=== PATIENT | female | born 1980 | race Caucasian/White ===

== ENCOUNTER 2019-12-26 14:34 | Inpatient (IN) | payer MEDICARE, MEDICAID ==
[~2019-12-26] VITALS: Ht 160 cm; Wt 90.0 kg
[2019-12-26] MEDS ORDERED: DexAMETHasone SOD PHOS 10MG/1ML VIAL INJ IV ONE (22:00)
[2019-12-26] MEDS ORDERED: DOXYCYCLINE 100 MG TAB/CAP PO ONE (22:00)
[2019-12-26] MEDS ORDERED: SODIUM CHLORIDE 0.9% 1,000 ML IV ONE (22:00)
[2019-12-26] MEDS ORDERED: DOXYCYCLINE 100MG/250ML 250 ML IV ONE (22:15)
[2019-12-26] MEDS ORDERED: LEVO25TA6 PO (22:19)
[2019-12-26] MEDS ORDERED: CLOZ50TA4 PO (22:19)
[2019-12-26] MEDS ORDERED: LITH300T5 PO (22:19)
[2019-12-26 22:26] LABS: Basophils # (auto) 0 10 ^3/uL (0-0.2); Basophils % (auto) 0.2 % (0.0-2.0); Eosinophils # (auto) 0 10 ^3/uL (0-0.8); Hematocrit 40.2 % (36.0-46.0); Hemoglobin 13.4 g/dL (12.2-16.2); Lymphocytes # (auto) 1.3 10 ^3/uL (0.4-5.4); Lymphocytes % (auto) 9.1 % (10.0-50.0); Mean Corpuscular Hemoglobin 31.6 pg (28.0-32.0); Mean Corpuscular Hgb Conc. 33.4 g/dL (32.0-36.0); Mean Corpuscular Volume 94.8 fL (80.0-100.0); Monocytes # (auto) 1.7 10 ^3/uL (0-1.3); Monocytes % (auto) 11.6 % (0.0-12.0); Neutrophils # (auto) 11.5 10 ^3/uL (1.6-8.6); Neutrophils % (auto) 79.1 % (37.0-80.0); Platelet Count (auto) 236 10^3/uL (140-450); Red Blood Cells 4.24 10^6/uL (4.0-5.20); White Blood Cell 14.5 10^3/uL (4.4-10.8)
[2019-12-26] MEDS ORDERED: LACT10SO70 PO (22:26)
[2019-12-26] MEDS ORDERED: LACT10SO3 PO (22:26)
[2019-12-26] MEDS ORDERED: LAMO100T44 PO (22:26)
[2019-12-26] MEDS ORDERED: ESCI10TA53 PO (22:26)
[2019-12-26] MEDS ORDERED: [UNRECOGNIZED DRUG - CODE] PO (22:26)
[2019-12-26] MEDS ORDERED: HAL5T GT (22:26)
[2019-12-26] MEDS ORDERED: DOCU100T15 PO (22:26)
[2019-12-26 23:31] LABS: Albumin 3.6 g/dL (3.4-5.0); BUN/Creatinine Ratio 11.2; Bilirubin, Total 0.3 mg/dL (0.2-1.0); Calcium 8.8 mg/dL (8.5-10.1); Potassium 3.5 mmol/L (3.5-5.1); Total Protein 7.6 g/dL (6.4-8.2)
[2019-12-27] MEDS ORDERED: ONDANSETRON HCL 4 MG/2 ML VIAL IV PRN (00:45)
[2019-12-27] MEDS ORDERED: NITROGLYCERIN 0.4 MG SL TAB SL PRN (00:45)
[2019-12-27] MEDS ORDERED: ACETAMINOPHEN 325 MG TAB PO PRN (00:45)
[2019-12-27] MEDS ORDERED: TEMAZEPAM 15 MG CAP PO PRN (00:45)
[2019-12-27] MEDS ORDERED: MORPHINE SULF INJ 2 MG/ML SYRINGE 1ML IV PRN (00:45)
[2019-12-27 00:54] VITALS: BP 104/73
[2019-12-27 01:01] LABS: Urine Bacteria FEW /hpf (None Seen); Urine Blood Negative /uL (Negative); Urine Specific Gravity 1.009 (1.001-1.035); Urine WBC 1 /hpf (0 - 5)
[2019-12-27] MEDS: ALBUTEROL SULF HFA 90MCG INH 200DOSE IN SCH ×3 (06:00→21:09)
--- NOTE | 2019-12-27 06:45 | NUR ---
Telemetry admit from [facility] admitted to Telemetry unit. Patient oriented to Leah Ngo RN primary RN, unit, room, bed, and unit policies regarding patient care and visiting hours. Patient now on continuous telemetry monitoring, tele box # 11 and telemetry reading on arrival to unit is NSR . Patient placed on bedside oxygen, weighed by bedscale and encouraged to call if they need something. All questions and concerns addressed, patient verbalized understanding. Note: patient alert and oriented x 4, follows direction. on oxygen at 4l via nc, no s/s of distress, patient denies SOB. Patient turns independently in bed and ambulates with steady gait. Bed in lowest locked position with side rails up x 2 and call light within reach. Instructed on POC and to call for assistance PRN.
[2019-12-27] MEDS: LEVOTHYROXINE SODIUM 25 MCG TAB PO SCH (07:06)
[2019-12-27 07:07] VITALS: BP 114/65
[2019-12-27 09:00] VITALS: BP_SYST 113; BP_SYST 114; BP_DIAS 58; BP_DIAS 65
[2019-12-27] MEDS: DexAMETHasone SOD PHOS 10MG/1ML VIAL INJ IV SCH (10:32)
[2019-12-27] MEDS: DOXYCYCLINE 100MG/250ML 250 ML IV SCH ×2 (10:33→23:13)
[2019-12-27] MEDS: ZINC SULFATE 220mg CAP or TAB PO SCH (10:34)
[2019-12-27] MEDS: FAMOTIDINE 20 MG TAB PO SCH ×2 (10:34→23:13)
[2019-12-27] MEDS: ASCORBIC ACID 1,000 MG TAB PO SCH (10:34)
[2019-12-27] MEDS: lamoTRIgine 100 MG TAB PO SCH (10:34)
[2019-12-27] MEDS: CHOLECALCIFEROL (VITD3) 2,000 UNIT CAP PO SCH (10:35)
[2019-12-27] MEDS: ENOXAPARIN SOD 40 MG/0.4 ML SYRINGE SC SCH (10:35)
--- NOTE | 2019-12-27 12:19 | NUR ---
ss consult Per consult info advanced directive and no pcp. Tk SAENZ has provided patient with advanced directive and Nita Gomez will see patient for PCP. Patient is in Covid unit. Addendum: 12/27/19 at 1221 by Nita Toledo Amended: Links added.
[2019-12-27 13:00] VITALS: BP 98/50
[2019-12-27] MEDS: LITHIUM CARBONATE 300 MG TAB PO SCH ×2 (14:24→23:12)
[2019-12-27] MEDS ORDERED: POTASSIUM CHL 20 Meq TABLET PO ONE (15:15)
[2019-12-27] MEDS ORDERED: FUROSEMIDE 20 MG/2 ML VIAL IV ONE (15:15)
[2019-12-27] MEDS ORDERED: DEXTROSE (50%) 50ML SYRG IV PRN (15:15)
[2019-12-27] MEDS ORDERED: guaiFENesin-DM 100/10mg/5ml SYR PO PRN (15:15)
--- NOTE | 2019-12-27 15:18 | NUR ---
RE-ASSESS O2 90% ON ROOM AIR. MD MADE AWARE. PATIENT DENIED PAIN, NO SOB , DISTRESS OR PAIN REPORTED. WILL CONTINUE TO MONITOR.
[2019-12-27 16:59] VITALS: BP 118/63
[2019-12-27] MEDS: InsuLIN REG 1unit/0.01ml Soln (100units/ml) SC SCH ×2 (17:00→22:00)
--- NOTE | 2019-12-27 19:40 | NUR ---
Opening Shift Note Assumed care of patient, awake and alert x4. Patient denies pain or shortness of breath at this time. No sign/symptoms of distress noted or verbalized at this time. Instructed on plan of care and encouraged patient to call for assistance as needed, patient verbalized understanding. Bed is locked in lowest position, side rails x 2 are up, and call light is within reach.
--- NOTE | 2019-12-27 19:49 | NUR ---
Discharge Discharge instructions given as ordered by harvinder RN, this RN reinforced discharge teaching with patient. Encourage to follow up with primary care provider as instructed. All questions and concerns addressed. Patient verbalized understanding. Medication reconciliation form completed and copy given to patient. Prescriptions given to patient. IV removed with catheter intact, pressure dressing applied. Telemetry box was removed and sent to ICU by harvinder SAENZ. Patient taken to vehicle via wheelchair with all personal belongings and oxygen tank accompanied by staff, EVS, and security. No distress noted at time of departure. Addendum: 12/28/19 at 0152 by DENISE GIPSON RN RN WRONG PATIENT
[2019-12-27] MEDS: ACCU-CHEK COMFORT CURVE STRIP VI SCH ×2 (20:00→23:13)
--- NOTE | 2019-12-27 20:01 | NUR ---
INSULIN HELD FOR BS OF 170. PATIENT ATE A LARGE MEAL 1 HOUR PRIOR TO CHECKING. ENDORSED TO NIGHT RN TO MONITOR.
[2019-12-27 22:00] VITALS: BP 107/65
[2019-12-28 05:00] VITALS: BP 98/53
[2019-12-28] MEDS: ACCU-CHEK COMFORT CURVE STRIP VI SCH ×4 (05:32→22:00)
[2019-12-28] MEDS: InsuLIN REG 1unit/0.01ml Soln (100units/ml) SC SCH ×4 (05:32→22:00)
[2019-12-28] MEDS: LEVOTHYROXINE SODIUM 25 MCG TAB PO SCH (05:32)
[2019-12-28] MEDS: ALBUTEROL SULF HFA 90MCG INH 200DOSE IN SCH ×3 (05:53→21:19)
--- NOTE | 2019-12-28 07:15 | NUR ---
Opening Shift Note Assumed care of patient, awake and alert. No S/S of distress/SOB or pain. Instructed on POC and to call for assist PRN, will continue to monitor for changes Q1hr and PRN. Patient currently on RA. Fall precautions in place per safety protocol.
[2019-12-28 07:26] LABS: Basophils # (auto) 0 10 ^3/uL (0-0.2); Basophils % (auto) 0.2 % (0.0-2.0); Eosinophils # (auto) 0 10 ^3/uL (0-0.8); Hematocrit 37.1 % (36.0-46.0); Hemoglobin 12.5 g/dL (12.2-16.2); Lymphocytes # (auto) 1.2 10 ^3/uL (0.4-5.4); Lymphocytes % (auto) 11.6 % (10.0-50.0); Mean Corpuscular Hemoglobin 31.6 pg (28.0-32.0); Mean Corpuscular Hgb Conc. 33.7 g/dL (32.0-36.0); Mean Corpuscular Volume 93.9 fL (80.0-100.0); Monocytes # (auto) 0.7 10 ^3/uL (0-1.3); Monocytes % (auto) 6.6 % (0.0-12.0); Neutrophils # (auto) 8.7 10 ^3/uL (1.6-8.6); Neutrophils % (auto) 81.6 % (37.0-80.0); Platelet Count (auto) 235 10^3/uL (140-450); Red Blood Cells 3.95 10^6/uL (4.0-5.20); Red Cell Distribution Width 12.8 % (11.8-14.3); White Blood Cell 10.6 10^3/uL (4.4-10.8)
[2019-12-28 07:49] LABS: Potassium 4.1 mmol/L (3.5-5.1)
--- NOTE | 2019-12-28 07:54 | NUR ---
FLU SWAB Flu swab collected and sent to lab via bullet.
[2019-12-28 07:58] LABS: Albumin 3.3 g/dL (3.4-5.0); BUN/Creatinine Ratio 17.6; Calcium 8.8 mg/dL (8.5-10.1); Magnesium 2.2 mg/dL (1.6-2.6)
[2019-12-28 08:01] LABS: Bilirubin, Total 0.2 mg/dL (0.2-1.0)
[2019-12-28 08:40] VITALS: BP 109/56
[2019-12-28] MEDS: DexAMETHasone SOD PHOS 10MG/1ML VIAL INJ IV SCH (10:23)
[2019-12-28] MEDS: FUROSEMIDE 20 MG/2 ML VIAL IV SCH (10:23)
[2019-12-28] MEDS: DOXYCYCLINE 100MG/250ML 250 ML IV SCH ×2 (10:24→22:52)
[2019-12-28] MEDS: lamoTRIgine 100 MG TAB PO SCH (10:24)
[2019-12-28] MEDS: LITHIUM CARBONATE 300 MG TAB PO SCH ×2 (10:24→22:53)
[2019-12-28] MEDS: POTASSIUM CHL 10 Meq TABLET PO SCH (10:24)
[2019-12-28] MEDS: ZINC SULFATE 220mg CAP or TAB PO SCH (10:24)
[2019-12-28] MEDS: FAMOTIDINE 20 MG TAB PO SCH ×2 (10:25→22:52)
[2019-12-28] MEDS: ENOXAPARIN SOD 40 MG/0.4 ML SYRINGE SC SCH (10:25)
[2019-12-28] MEDS: CHOLECALCIFEROL (VITD3) 2,000 UNIT CAP PO SCH (10:25)
[2019-12-28] MEDS: ASCORBIC ACID 1,000 MG TAB PO SCH (10:25)
--- NOTE | 2019-12-28 12:00 | NUR ---
[facility] Per MD Davila, patient can be monitored one more day on RA. Patient is a possible DC tomorrow. Will cont to monitor patient.
[2019-12-28 13:00] VITALS: BP 121/73
[2019-12-28 16:43] VITALS: BP 101/65
[2019-12-28 22:00] VITALS: BP 106/62
[2019-12-29] VITALS (7 sets, daily range): BP systolic 95–128; BP diastolic 53–81
--- NOTE | 2019-12-29 02:59 | NUR ---
Care endorsed Endorsed care to day DANY Waddell.
--- NOTE | 2019-12-29 03:30 | NUR ---
Patient resting comfortably, patient verbalized she is fine and does not need anything at this time.
[2019-12-29] MEDS: ALBUTEROL SULF HFA 90MCG INH 200DOSE IN SCH ×3 (06:21→21:37)
--- NOTE | 2019-12-29 06:45 | NUR ---
Patient asked if she will go home today, I told patient I was unsure but would update her, she verbalized understanding and said she would call her sister to let her know.
[2019-12-29] MEDS: InsuLIN REG 1unit/0.01ml Soln (100units/ml) SC SCH ×4 (07:00→22:30)
[2019-12-29] MEDS: ACCU-CHEK COMFORT CURVE STRIP VI SCH ×4 (07:33→22:30)
[2019-12-29] MEDS: LEVOTHYROXINE SODIUM 25 MCG TAB PO SCH (07:33)
[2019-12-29] MEDS: DexAMETHasone SOD PHOS 10MG/1ML VIAL INJ IV SCH (10:56)
[2019-12-29] MEDS: DOXYCYCLINE 100MG/250ML 250 ML IV SCH (10:57)
[2019-12-29] MEDS: lamoTRIgine 100 MG TAB PO SCH (10:57)
[2019-12-29] MEDS: FUROSEMIDE 20 MG/2 ML VIAL IV SCH (10:57)
[2019-12-29] MEDS: LITHIUM CARBONATE 300 MG TAB PO SCH ×2 (10:57→22:30)
[2019-12-29] MEDS: ZINC SULFATE 220mg CAP or TAB PO SCH (10:57)
[2019-12-29] MEDS: POTASSIUM CHL 10 Meq TABLET PO SCH (10:57)
[2019-12-29] MEDS: FAMOTIDINE 20 MG TAB PO SCH ×2 (10:57→22:30)
[2019-12-29] MEDS: ASCORBIC ACID 1,000 MG TAB PO SCH (10:58)
[2019-12-29] MEDS: ENOXAPARIN SOD 40 MG/0.4 ML SYRINGE SC SCH (10:58)
[2019-12-29] MEDS: CHOLECALCIFEROL (VITD3) 2,000 UNIT CAP PO SCH (10:58)
[2019-12-29] MEDS ORDERED: DEXT1SYP9 PO (11:32)
[2019-12-29] MEDS ORDERED: ASCO10003 PO (11:32)
[2019-12-29] MEDS ORDERED: ALBUAER3 IN (11:32)
[2019-12-29] MEDS ORDERED: METH4PAK PO (11:32)
[2019-12-29] MEDS ORDERED: ZINC220T6 PO (11:32)
[2019-12-29] MEDS ORDERED: CHOL1CAP47 PO (11:32)
[2019-12-29] MEDS ORDERED: FAMO20TA10 PO (11:32)
[2019-12-29] MEDS ORDERED: DOXY-286 PO (11:32)
--- NOTE | 2019-12-29 13:09 | NUR ---
paged social work lecturer to arrange DC home.
--- NOTE | 2019-12-29 13:28 | NUR ---
paged renal social worker for SNF bed, faxed facesheet to [facility]. awaiting transportation information
--- NOTE | 2019-12-29 15:37 | NUR ---
called shlomo per social media analyst request to get transport time, no answer, message left with call back number. [facility]lomo [phone]
--- NOTE | 2019-12-29 15:38 | NUR ---
SNF fax # [phone] and [phone] per administrator social welfare fax both numbers
--- NOTE | 2019-12-29 17:33 | NUR ---
per JOSHUA at [facility] patient will not have transport until tomorrow at 11am. Notified
--- NOTE | 2019-12-29 17:48 | NUR ---
patient declined IV placement, doesn't want to be poked again, educated patient, aware.
--- NOTE | 2019-12-29 17:50 | NUR ---
Ok to change IV meds to PO per Dr Davila.
--- NOTE | 2019-12-29 19:35 | NUR ---
Opening Shift Note Assumed care of patient, awake and alert. No S/S of distress/SOB or pain. Patient is currently on RA. Bed is locked in lowest position with call light within reach. Instructed on POC and to call for assist PRN, will continue to monitor for changes Q1hr and PRN.
[2019-12-29] MEDS: DOXYCYCLINE 100 MG TAB/CAP PO SCH (22:30)
[2019-12-30 05:00] VITALS: BP 115/63
[2019-12-30] MEDS: ALBUTEROL SULF HFA 90MCG INH 200DOSE IN SCH ×2 (06:00→14:43)
[2019-12-30] MEDS: InsuLIN REG 1unit/0.01ml Soln (100units/ml) SC SCH ×2 (07:00→11:30)
[2019-12-30] MEDS: ACCU-CHEK COMFORT CURVE STRIP VI SCH ×2 (07:41→11:30)
[2019-12-30] MEDS: LEVOTHYROXINE SODIUM 25 MCG TAB PO SCH (07:41)
[2019-12-30 09:00] VITALS: BP 101/64
[2019-12-30] MEDS: ZINC SULFATE 220mg CAP or TAB PO SCH (09:50)
[2019-12-30] MEDS: FUROSEMIDE 20 MG/2 ML VIAL IV SCH (09:50)
[2019-12-30] MEDS: LITHIUM CARBONATE 300 MG TAB PO SCH (09:50)
[2019-12-30] MEDS: ASCORBIC ACID 1,000 MG TAB PO SCH (09:51)
[2019-12-30] MEDS: FAMOTIDINE 20 MG TAB PO SCH (09:51)
[2019-12-30] MEDS: CHOLECALCIFEROL (VITD3) 2,000 UNIT CAP PO SCH (09:51)
[2019-12-30] MEDS: DOXYCYCLINE 100 MG TAB/CAP PO SCH (09:51)
[2019-12-30] MEDS: POTASSIUM CHL 10 Meq TABLET PO SCH (09:51)
[2019-12-30] MEDS: lamoTRIgine 100 MG TAB PO SCH (09:51)
[2019-12-30] MEDS: ENOXAPARIN SOD 40 MG/0.4 ML SYRINGE SC SCH (09:52)
[2019-12-30] MEDS ORDERED: DexAMETHasone 4 MG TAB PO SCH (10:00)
[2019-12-30 13:00] VITALS: BP 105/74
--- NOTE | 2019-12-30 15:20 | NUR ---
ATTEMPTED TO CALL [facility] MULTIPLE TIMES UNABLE TO REACH A LIVE PERSON. WROTE OUT A DETAILED REPORT SHEET FOR PATIENT AND PLACED IN ENVELOPE ON TOP WITH OTHER PAPERWORK.
--- NOTE | 2019-12-30 15:36 | NUR ---
TRANSPORT HERE TO [employer] SALES REPRESENTATIVE PATIENT, PATIENT DISCHARGED. PATIENT SENT WITH MEDICATIONS FROM [facility].
--- NOTE | 2019-12-31 12:26 | NUR ---
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 Per patients caregiver she has no preference on what facility. Patient is covid positive. MD order has been sent to [facility]. Per Saskia at [facility] she has accepted patient at [facility]. Per Saskia she will need a new covid test. Nadira has been informed. Patient was transferred to [facility] on 12/30/2019. Addendum: 12/31/19 at 1229 by Nita Toledo Amended: Links added.
== END 2019-12-30 15:30 | DRG 177 ==
LOC: ER 14:34 → TELE 14:35 → TELE-EAST 12-27 07:47
PROVIDERS: ADMIT Nurse Practitioner; ATTEND Internal Medicine
DX: U07.1 COVID-19 (principal); J12.89 Other viral pneumonia; N17.0 Acute kidney failure with tubular necrosis; J96.00 Acute respiratory failure, unspecified whether with hypoxia or hypercapnia; R65.10 Systemic inflammatory response syndrome (SIRS) of non-infectious origin without acute organ dysfunction; H90.5 Unspecified sensorineural hearing loss; E03.9 Hypothyroidism, unspecified; E66.01 Morbid (severe) obesity due to excess calories; Z68.35 Body mass index [BMI] 35.0-35.9, adult
CPT/HCPCS: 36415; 71045; 80053; 80178; 81001; 82728; 82962; 83605; 83735; 83880; 84443; 84484; 85025; 85379; 86141; 86850; 86900; 86901; 87040; 87426; 87804; 94640; 96365; 96366; 96375; 97163; G0378; J1100; J3490